=== PATIENT | female | born 1970 | race Caucasian/White ===

== ENCOUNTER → 2023-11-28 09:10 | Outpatient (REF) | payer MEDICARE, OTHER, SELFPAY ==
[2023-11-28 10:16] LABS: ALT (SGPT) 267 U/L (0-35); AST (SGOT) 176 U/L (14-36); Albumin 4.8 g/dl (3.5-5.0); Alkaline Phosphatase 131 U/L (38-126); Blood Urea Nitrogen 20 mg/dl (7-17); Calcium 10.2 mg/dl (8.4-10.2); Carbon Dioxide 31 mmol/L (22-30); Chloride 99 mmol/L (98-107); Glucose 113 mg/dl (70-99); Sodium 142 mmol/L (135-145); Total Bilirubin 0.5 mg/dl (0.2-1.3); Total Protein 7.4 g/dl (6.3-8.2); eGFR > 60.00
[2023-11-28 10:21] LABS: Potassium 3.8 mmol/L (3.5-5.1)
[2023-11-28 10:23] LABS: Depakane 41.4 ug/ml (50.0-120.0)
[2023-11-28 10:33] LABS: Free T4 1.13 ng/dl (0.78-2.19); Vitamin D, 25-OH*** 36.9 ng/mL (30-80)
[2023-11-28 11:22] LABS: Folate > 20.0 ng/ml (2.76-20); Vitamin B12 431 pg/ml (239-931)
== END ==
LOC: REG 09:10
PROVIDERS: ATTENDING PHYSICIAN Physician Assistant; FAMILY PHYSICIAN Family Medicine; REFERRING PHYSICIAN Registered Nurse Psychiatric/Mental Health
DX: E03.9 Hypothyroidism, unspecified (principal); R78.89 Finding of other specified substances, not normally found in blood; K76.0 Fatty (change of) liver, not elsewhere classified; Z79.899 Other long term (current) drug therapy; E55.9 Vitamin D deficiency, unspecified
CPT/HCPCS: 36415; 80053; 80164; 82306; 82607; 82746; 84439; 84443

== ENCOUNTER → 2023-12-04 12:04 | Outpatient (REF) | payer MEDICARE, OTHER, SELFPAY | LOC: WDC 12:04 | PROVIDERS: ATTENDING PHYSICIAN Physician Assistant | DX: Z12.31 Encounter for screening mammogram for malignant neoplasm of breast (principal) | CPT/HCPCS: 77063; 77067 ==

== ENCOUNTER → 2024-02-05 09:12 | Outpatient (REF) | payer MEDICARE, OTHER, SELFPAY ==
[2024-02-05 11:39] LABS: ALT (SGPT) 85 U/L (0-35); AST (SGOT) 81 U/L (14-36); Albumin 4.6 g/dl (3.5-5.0); Alkaline Phosphatase 95 U/L (38-126); Blood Urea Nitrogen 17 mg/dl (7-17); Calcium 10.5 mg/dl (8.4-10.2); Carbon Dioxide 30 mmol/L (22-30); Chloride 101 mmol/L (98-107); Glucose 110 mg/dl (70-99); Potassium 5.1 mmol/L (3.5-5.1); Sodium 143 mmol/L (135-145); Total Bilirubin 0.7 mg/dl (0.2-1.3); Total Protein 7.3 g/dl (6.3-8.2); eGFR > 60.00
[2024-02-05 12:08] LABS: TSH 0.11 uIU/ml (0.47-4.68)
[2024-02-05 12:22] LABS: Free T4 1.61 ng/dl (0.78-2.19)
== END ==
LOC: RAD 09:12
PROVIDERS: ATTENDING PHYSICIAN Physician Assistant
DX: E66.01 Morbid (severe) obesity due to excess calories (principal); Z68.35 Body mass index [BMI] 35.0-35.9, adult; K76.0 Fatty (change of) liver, not elsewhere classified; D18.03 Hemangioma of intra-abdominal structures; R79.89 Other specified abnormal findings of blood chemistry; F41.9 Anxiety disorder, unspecified; E03.9 Hypothyroidism, unspecified
CPT/HCPCS: 36415; 76700; 80053; 84439; 84443

== ENCOUNTER → 2024-08-24 09:45 | Outpatient (REF) | payer MEDICARE, OTHER, SELFPAY ==
[2024-08-24 11:50] LABS: Free T3 3.28 pg/ml (2.77-5.27); Free T4 1.16 ng/dl (0.78-2.19)
[2024-08-25 15:53] LABS: Thyroid Peroxidase Ab (TPO) 9.8 IU/mL (0.0-9.0)
== END ==
LOC: REG 09:45
PROVIDERS: ATTENDING PHYSICIAN Physician Assistant; FAMILY PHYSICIAN Family Medicine
DX: E03.9 Hypothyroidism, unspecified (principal)
CPT/HCPCS: 36415; 84439; 84443; 84481; 86376

== ENCOUNTER → 2024-11-18 11:01 | Outpatient (REF) | payer MEDICARE, OTHER, SELFPAY ==
[2024-11-18 12:23] LABS: ALT (SGPT) 82 U/L (0-35); AST (SGOT) 73 U/L (14-36); Albumin 5.2 g/dl (3.5-5.0); Alkaline Phosphatase 102 U/L (38-126); Direct Bilirubin 0.3 mg/dl (0.0-0.4); Iron 145 ug/dl (37-170); Total Bilirubin 1.1 mg/dl (0.2-1.3); Total Protein 7.7 g/dl (6.3-8.2)
[2024-11-18 12:33] LABS: Percent Saturation 36 % (20-50); Total Iron Binding Capacity 402 ug/dl (265-497)
[2024-11-18 13:13] LABS: Hepatitis A Antibody, Total Negative (Negative); Hepatitis B Core Ab, Total Negative (Negative); Hepatitis B Surface Antibody Negative; Hepatitis C Antibody Negative (Negative)
[2024-11-19 23:05] LABS: Alpha-1-Antitrypsin 143 mg/dL (90-200); Ceruloplasmin 37 mg/dL (16-45)
[2024-11-19 23:57] LABS: F-Actin Antibody IgG 7 Units (0-19); Mitochondrial M2 Ab, IgG 3.7 Units (0.0-24.9)
[2024-11-20 00:17] LABS: tTG IgA Antibody <1.02 FLU (0.00-4.99)
[2024-11-20 02:14] LABS: LKM-1 Ab (IgG) 0.8 U (0.0-24.9)
[2024-11-20 02:29] LABS: ANA, IgG Reflex to HEp-2 Detected (None Detected)
[2024-11-20 23:31] LABS: IgA 219 mg/dl (70-400); IgG 600 mg/dl (700-1600); IgM 36 mg/dl (40-230)
== END ==
LOC: REG 11:01
PROVIDERS: ATTENDING PHYSICIAN Internal Medicine Gastroenterology; FAMILY PHYSICIAN Family Medicine
DX: K76.0 Fatty (change of) liver, not elsewhere classified (principal)
CPT/HCPCS: 36415; 80076; 82103; 82390; 82728; 82784; 83540; 83550; 86015; 86038; 86364; 86376; 86381; 86704; 86706; 86708; 86803

== ENCOUNTER → 2025-01-16 07:34 | Outpatient (REF) | payer MEDICARE, OTHER, SELFPAY ==
[2025-01-16 09:57] LABS: IgA 194 mg/dl (70-400)
[2025-01-16 10:07] LABS: Free T4 1.44 ng/dl (0.78-2.19)
[2025-01-16 10:21] LABS: TSH 0.84 uIU/ml (0.47-4.68)
[2025-01-16 11:01] LABS: Erythrocyte Sed Rate 16 mm/hour (0-20)
[2025-01-18 08:53] LABS: Endomysial IgA Antibody Titer <1:10 (<1:10)
[2025-01-18 11:47] LABS: tTG IgA Antibody 4.5 EU/ml (0-19); tTG IgG Antibody 2.8 EU/ml (0-19)
== END ==
LOC: REG 07:34
PROVIDERS: ATTENDING PHYSICIAN Internal Medicine Endocrinology, Diabetes & Metabolism; FAMILY PHYSICIAN Family Medicine
DX: E06.3 Autoimmune thyroiditis (principal); R19.7 Diarrhea, unspecified
CPT/HCPCS: 36415; 82784; 83516; 84439; 84443; 84481; 85652; 86140; 86231

== ENCOUNTER → 2025-08-18 09:32 | Outpatient (REF) | payer MEDICARE, OTHER, SELFPAY ==
[2025-08-18 10:58] LABS: ALT (SGPT) 72 U/L (0-35); AST (SGOT) 80 U/L (14-36); Albumin 4.4 g/dl (3.5-5.0); Alkaline Phosphatase 86 U/L (38-126); Blood Urea Nitrogen 15 mg/dl (7-17); Calcium 9.7 mg/dl (8.4-10.2); Carbon Dioxide 28 mmol/L (22-30); Chloride 104 mmol/L (98-107); Glucose 121 mg/dl (70-99); Potassium 4.6 mmol/L (3.5-5.1); Sodium 137 mmol/L (135-145); Total Protein 7.2 g/dl (6.3-8.2); eGFR > 60.00
[2025-08-18 11:28] LABS: TSH 0.04 uIU/ml (0.47-4.68)
== END ==
LOC: REG 09:32
PROVIDERS: ATTENDING PHYSICIAN Physician Assistant
DX: E66.813 Obesity, class 3 (principal); Z68.42 Body mass index [BMI] 45.0-49.9, adult; E06.3 Autoimmune thyroiditis
CPT/HCPCS: 36415; 80053; 84439; 84443